=== PATIENT | male | born 1970 | race Two or more races ===

== ENCOUNTER 2021-10-31 09:57 | Outpatient (CLI) | payer OTHER | END 2021-10-31 09:59 | disposition home or self-care (01) | LOC: SONOGRAMA 09:57 | PROVIDERS: ATTEND Pathology Anatomic Pathology & Clinical Pathology | DX: E04.1 Nontoxic single thyroid nodule (principal) ==

== ENCOUNTER 2023-05-22 06:31 | Day surgery (SDC) | payer OTHER ==
[2023-05-20 12:47] LABS: HEMATOCRIT 44.9 % (39.0-48.0); HEMOGLOBIN 15.3 g/dL (13-16.00); MEAN CELL VOLUME 92.9 fL (80.0-100.00); MEAN CORPUSCULAR HEMOGLOBIN 31.7 pg (27.00-32.0); MEAN CORPUSCULAR HGB CONC 34.2 g/dl (32.0-36.0); PLATELET COUNT 342 K/uL (150-450); RED BLOOD COUNT 4.84 M/uL (4.00-6.00); RED CELL DISTRIBUTION WIDTH 13.3 % (11.5-14.5)
[2023-05-20 12:58] LABS: INR 1.2; PARTIAL THROMBOPLASTIN TIME 31.3 SECONDS (22.0-34.0); PROTHROMBIN TIME 12.4 SECONDS (9.0-11.5)
[2023-05-20 13:05] LABS: PH,URINE 6.5 (5.0-8.0); URINE APPEARANCE Clear; URINE BILIRRUBIN Negative (NEGATIVE); URINE BLOOD Negative; URINE COLOR Yellow; URINE GLUCOSE Negative (NEGATIVE); URINE LEUKOCYTE Negative; URINE NITRATE Negative; URINE PROTEIN Negative (NEGATIVE); URINE UROBILINOGEN 0.2 E.U./dl
[2023-05-20 13:09] LABS: URINE WBC 2.5 uL (0.0-23.2)
[2023-05-20 13:09] LABS: ALBUMIN 4.2 gm/dL (3.4-5.0); BILIRUBIN TOTAL 0.76 mg/dL (0.3-1.2); CALCIUM 10.3 mg/dL (8.5-10.1); CREATININE SERUM 1.06 mg/dL (0.70-1.30); GFR 72.53; GLOBULINA 3.7 G/DL (2.4-3.5); PHOSPHOROUS 3.5 mg/dL (2.5-4.9); POTASSIUM 4.6 mEq/L (3.5-5.1); TOTAL PROTEIN 7.9 gm/dL (6.4-8.2)
[2023-05-20 13:23] LABS: URINE EPITHELIAL CELLS 0.1 uL (0.0-38.8); URINE RBC 1.8 uL (0.0-20.8)
[2023-05-22] MEDS ORDERED: TRAM1TAB98 PO (12:27)
== END 2023-05-22 13:40 | disposition home or self-care (01) ==
LOC: CIR.AMB 06:31
PROVIDERS: ATTEND Surgery
DX: C20 Malignant neoplasm of rectum (principal); K62.5 Hemorrhage of anus and rectum; I10 Essential (primary) hypertension; Z20.822 Contact with and (suspected) exposure to COVID-19

== ENCOUNTER 2024-03-10 11:30 | Inpatient (IN) | payer OTHER ==
[~2024-03-10] VITALS: Ht 167.6 cm; Wt 77.1 kg
[~2024-03-10 11:30] MED LIST: NEURONTIN300 MG PO; TRAM1TAB98 PO
[2024-03-18] MEDS ORDERED: MORPHINE SULFATE 4 MG/ML CARTRIDGE IV PRN (12:45)
[2024-03-18] MEDS ORDERED: RINGERS SOLUTION,LACTATED 1,000 ML IV SCH (12:45)
[2024-03-18] MEDS ORDERED: DEXTROSE 50 % IN WATER 0.5 G/ML DISP.SYRIN IV PRN (12:45)
[2024-03-18] MEDS ORDERED: OxyCODONE HCL 5 MG TABLET (ROXICODONE) PO PRN (12:45)
[2024-03-18] MEDS ORDERED: ONDANSETRON HCL 2 MG/ML VIAL IV PRN (12:45)
[2024-03-18] MEDS ORDERED: LIDOCAINE HCL 1%/EPINEPHRINE 20ML VIAL IJ ONE (13:00)
[2024-03-18] MEDS ORDERED: HYOSCYAMINE SULFATE 0.125 MG TAB.SUBL SL SCH (13:00)
[2024-03-18] MEDS ORDERED: CHLORHEXIDINE GLUCONATE 120 ML BOTTLE TOP ONE (13:00)
[2024-03-18] MEDS ORDERED: BUPIVACAINE HCL 30 ML VIAL IJ ONE (13:00)
[2024-03-18] MEDS ORDERED: PIPERACILLIN/TAZOBACTAM SODIUM 3.375 GM VIAL IV ONE ×2 (13:00→14:30)
[2024-03-18] MEDS ORDERED: ENALAPRILAT DIHYDRATE 1.25 MG/ML VIAL IV PRN (13:15)
[2024-03-18] MEDS ORDERED: ACETAMINOPHEN 500 MG GEL..CAP PO SCH (14:00)
[2024-03-18 15:38] LABS: HEMATOCRIT 39.4 % (39.0-48.0); HEMOGLOBIN 13.5 g/dL (13-16.00); MEAN CELL VOLUME 93.1 fL (80.0-100.00); MEAN CORPUSCULAR HGB CONC 34.3 g/dl (32.0-36.0); PLATELET COUNT 224 K/uL (150-450); RED BLOOD COUNT 4.23 M/uL (4.00-6.00); RED CELL DISTRIBUTION WIDTH 13.9 % (11.5-14.5)
[2024-03-18 16:00] LABS: ALBUMIN 3.7 gm/dL (3.4-5.0); CALCIUM 8.9 mg/dL (8.5-10.1); CREATININE SERUM 1.23 mg/dL (0.70-1.30); GFR 60.87; PHOSPHOROUS 3.9 mg/dL (2.5-4.9); POTASSIUM 3.95 mEq/L (3.5-5.1)
[2024-03-18] MEDS ORDERED: GABAPENTIN 300 MG CAPSULE PO SCH (17:00)
[2024-03-18] MEDS ORDERED: POLYETHYLENE GLYCOL 3350 17 GM BLIST.PACK PO SCH (17:00)
[2024-03-18] MEDS ORDERED: MORPHINE SULFATE 4 MG/ML VIAL IV ONE (17:00)
[2024-03-18] MEDS ORDERED: PIPERACILLIN/TAZOBACTAM SODIUM 3.375 GM in 0.9 % SODIUM CHLORIDE 50 ML IV SCH (18:00)
[2024-03-18] MEDS ORDERED: PIPERACILLIN/TAZOBACTAM SODIUM 3.375 GM VIAL IV SCH (18:00)
[2024-03-18 19:05] VITALS: BP 133/42; O2SAT 98
[2024-03-18] MEDS ORDERED: FAMOTIDINE/PF 20 MG/2 ML VIAL IV PUSH SCH (21:00)
[2024-03-19 01:26] VITALS: BP 114/69; O2SAT 98
[2024-03-19 07:06] LABS: HEMATOCRIT 36.2 % (39.0-48.0); HEMOGLOBIN 12.5 g/dL (13-16.00); MEAN CELL VOLUME 92.5 fL (80.0-100.00); MEAN CORPUSCULAR HGB CONC 34.6 g/dl (32.0-36.0); PLATELET COUNT 198 K/uL (150-450); RED BLOOD COUNT 3.91 M/uL (4.00-6.00); RED CELL DISTRIBUTION WIDTH 14.1 % (11.5-14.5)
[2024-03-19 07:50] LABS: ALBUMIN 3.1 gm/dL (3.4-5.0); CALCIUM 8.9 mg/dL (8.5-10.1); CREATININE SERUM 1.01 mg/dL (0.70-1.30); GFR 76.41; MAGNESIUM 2.1 mg/dL (1.8-2.4); PHOSPHOROUS 3.9 mg/dL (2.5-4.9); POTASSIUM 3.92 mEq/L (3.5-5.1)
[2024-03-19 08:00] VITALS: BP 111/58; O2SAT 98
[2024-03-19] MEDS ORDERED: ACETAMINOPHEN500 M2 PO (13:02)
[2024-03-19] MEDS ORDERED: NEURONTIN300 MG PO (13:02)
[2024-03-19] MEDS ORDERED: ENOXAPARIN SODIUM 40 MG/0.4 ML SYRINGE SUBCUTANEO SCH (17:00)
[2024-03-20] MEDS ORDERED: ENOXAPARIN SODIUM 40 MG/0.4 ML SYRINGE SUBCUTANEO SCH (09:00)
== END 2024-03-19 14:08 | disposition home or self-care (01) | DRG 349 ==
LOC: SURH 03-18 07:00 → O/R 03-18 09:07 → SURH 03-18 11:30
PROVIDERS: ADMIT Surgery; ATTEND Surgery
PROC: 0DBB4ZZ Excision of Ileum, Percutaneous Endoscopic Approach (ICD-10-PCS; principal; 2024-03-18 07:00)
DX: Z43.2 Encounter for attention to ileostomy (principal); Z20.822 Contact with and (suspected) exposure to COVID-19

== ENCOUNTER 2024-03-26 20:03 | Emergency (ER) | payer OTHER ==
[~2024-03-26] VITALS: Ht 167.6 cm; Wt 77.1 kg
[~2024-03-26 20:03] MED LIST changes: +ACETAMINOPHEN500 M2 PO
[2024-03-26 20:59] LABS: HEMATOCRIT 36.9 % (39.0-48.0); HEMOGLOBIN 12.7 g/dL (13-16.00); MEAN CELL VOLUME 93.3 fL (80.0-100.00); MEAN CORPUSCULAR HEMOGLOBIN 32.2 pg (27.00-32.0); MEAN CORPUSCULAR HGB CONC 34.5 g/dl (32.0-36.0); PLATELET COUNT 307 K/uL (150-450); RED BLOOD COUNT 3.95 M/uL (4.00-6.00); RED CELL DISTRIBUTION WIDTH 13.4 % (11.5-14.5)
[2024-03-26 21:10] LABS: ERYTHROCYTE SEDIMENTATION RATE 26 mm/hr
[2024-03-26 21:35] LABS: PH,URINE 6.5 (5.0-8.0); URINE APPEARANCE Clear; URINE BILIRRUBIN Negative (NEGATIVE); URINE BLOOD Negative; URINE COLOR Yellow; URINE GLUCOSE Negative (NEGATIVE); URINE KETONE Negative (NEGATIVE); URINE LEUKOCYTE Negative; URINE NITRATE Negative; URINE PROTEIN Negative (NEGATIVE); URINE UROBILINOGEN 0.2 E.U./dl
[2024-03-26 21:42] LABS: INR 1.21; PARTIAL THROMBOPLASTIN TIME 29.2 SECONDS (22.0-34.0)
[2024-03-26 21:54] LABS: BILIRUBIN TOTAL 0.29 mg/dL (0.3-1.2); CALCIUM 9.5 mg/dL (8.5-10.1); CREATININE SERUM 1.03 mg/dL (0.70-1.30); GFR 74.7; GLOBULINA 3.5 G/DL (2.4-3.5); POTASSIUM 4.08 mEq/L (3.5-5.1); TOTAL PROTEIN 7.5 gm/dL (6.4-8.2)
[2024-03-26 22:07] LABS: URINE BACTERIA 2.5 uL (0.0-1933); URINE RBC 1.3 uL (0.0-20.8); URINE WBC 0.8 uL (0.0-23.2)
[2024-03-26 22:08] LABS: C-REACTIVE PROTEIN 0.44 MG/DL (0.00-0.29)
== END 2024-03-27 07:54 | disposition home or self-care (01) ==
LOC: ER 20:04
PROVIDERS: General Practice
DX: G89.18 Other acute postprocedural pain (principal); N28.1 Cyst of kidney, acquired; Z98.890 Other specified postprocedural states

== ENCOUNTER 2024-11-25 05:53 | Day surgery (SDC) | payer OTHER ==
[2024-11-15 12:42] VITALS: BP 150/81
[2024-11-15 12:47] LABS: ALBUMIN 3.8 gm/dL (3.4-5.0); BILIRUBIN TOTAL 0.68 mg/dL (0.3-1.2); CALCIUM 9.5 mg/dL (8.5-10.1); CREATININE SERUM 1.06 mg/dL (0.70-1.30); GFR 72.27; GLOBULINA 3.3 G/DL (2.4-3.5); POTASSIUM 4.32 mEq/L (3.5-5.1); TOTAL PROTEIN 7.1 gm/dL (6.4-8.2)
[~2024-11-25] VITALS: Ht 167.6 cm; Wt 79.4 kg
[2024-11-25] MEDS ORDERED: CEFAZOLIN SODIUM 1,000 MG VIAL ONE (07:02)
[2024-11-25] MEDS ORDERED: TRAM1TAB98 PO (10:13)
== END 2024-11-25 11:15 | disposition home or self-care (01) ==
LOC: CIR.AMB 05:53
PROVIDERS: ATTEND Surgery
DX: T82.594A Other mechanical complication of infusion catheter, initial encounter (principal); C20 Malignant neoplasm of rectum; R59.0 Localized enlarged lymph nodes

== ENCOUNTER 2025-03-19 04:55 | Inpatient (IN) | payer OTHER ==
[~2025-03-19] VITALS: Ht 167.6 cm; Wt 77.1 kg
[2025-03-19] MEDS ORDERED: KETOROLAC TROMETHAMINE 30 MG VIAL IU STA (05:10)
[2025-03-19] MEDS ORDERED: ONDANSETRON HCL 2 MG/ML VIAL IV STA (05:11)
--- NOTE | 2025-03-19 05:17 | NUR ---
SE RECIBE PACIENTE ALERTA Y ORIENTADO X3 EL CUAL REFIERE VENIR A CAUSA DE QUE CAST ESTADO PRESENTANDO SINTOMAS DE DOLOR ABDOMINAL. AL MOMENTO EL MISMO REFIERE SER PACIENTE DE DR DRHUV OLIVA.
[2025-03-19] MEDS ORDERED: ONDANSETRON HCL 2 MG/ML VIAL ONE (05:23)
[2025-03-19] MEDS ORDERED: KETOROLAC TROMETHAMINE 30 MG VIAL ONE (05:23)
--- NOTE | 2025-03-19 05:46 | NUR ---
PTE LLEGA EN AMBULANCIA DE TRANSFER DEL [facility] D[facility] DIALLO QUIEN OPERO A EL PTE . LA LO EVALA Y ORDENA TRATAMIENTO LA CUAL S EJECUTA. SE MANITNENE BAJO OBSERVACION.
[2025-03-19 08:03] LABS: URINE APPEARANCE Clear; URINE BILIRRUBIN Negative (NEGATIVE); URINE BLOOD Trace; URINE COLOR Yellow; URINE GLUCOSE Negative (NEGATIVE); URINE LEUKOCYTE Negative; URINE NITRATE Negative; URINE PROTEIN 30 (NEGATIVE); URINE UROBILINOGEN 0.2 E.U./dl
[2025-03-19 08:06] LABS: URINE BACTERIA 15.5 uL (0.0-1933); URINE CAST 2.05 uL (0.0-1.40); URINE EPITHELIAL CELLS 13.0 uL (0.0-38.8); URINE RBC 6.5 uL (0.0-20.8); URINE WBC 5.2 uL (0.0-23.2)
--- NOTE | 2025-03-19 08:12 | NUR ---
SE RECIBE A PTE EN CAMA BAJA Y BARANDAS ELEVADAS POR WELLS SEGURIDAD CON H/L EN ROMA MCCONNELL. EN ESPERA DE RESULTADOS DE TOXICOLOGIA Y U/A.
--- NOTE | 2025-03-19 08:14 | NUR ---
SE RECIBE A PTE EN CAMA BAJA Y BARANDAS ELEVADAS POR WELLS SEGURIDAD CON H/L EN ROMA CMCONNELL. EN ESPERA DE LECTURA DE CT.
[2025-03-19] MEDS ORDERED: 0.9 % SODIUM CHLORIDE 1,000 ML IV SCH ×2 (08:15→12:45)
[2025-03-19] MEDS ORDERED: FAMOTIDINE/PF 20 MG in 0.9 % SODIUM CHLORIDE 8 ML IV PUSH ONE (08:30)
[2025-03-19 08:38] LABS: ALT/SGPT 29.0 U/L (12-78); AST/SGOT 28.0 U/L (15-37); BILIRUBIN TOTAL 1.15 mg/dL (0.3-1.2); BUN CREA RATIO 19.0 (7.0-25.0); CREATININE SERUM 1.18 mg/dL (0.70-1.30); GFR 63.63; GLOBULINA 3.7 G/DL (2.4-3.5); GLUCOSE FASTING 143.0 mg/dL (65-100); OSMOLALITY SERUM 281.0 MOSM/KG (275-295)
[2025-03-19] MEDS ORDERED: FAMOTIDINE/PF 20 MG/2 ML VIAL ONE ×2 (09:02→09:05)
[2025-03-19 09:10] LABS: URINE KETONE 80 (NEGATIVE)
[2025-03-19 09:11] LABS: TYPE CELLS SQUAMOUS; URINE CRYSTALS FEW /HPF; URINE MUCUS SCANT
[2025-03-19 09:18] LABS: BASO % 0.3 % (0.1-1.2); EOS # 0.00 (0.04-0.54); EOS % 0.0 % (0.7-7.0); LYMPH # 0.73 (1.18-3.74); LYMPH % 4.2 % (19.3-53.1); MEAN PLATELET VOLUME 9.50 fl (9.4-12.4); MONO # 0.90 (0.24-0.82); MONO % 5.2 % (4.7-12.5); NEUT # 15.68 (1.56-6.13); NEUT % 89.9 % (34.0-71.1); RED CELL DISTRIBUTION WIDTH 12.5 % (11.6-14.4)
[2025-03-19] MEDS ORDERED: PIPERACILLIN/TAZOBACTAM SODIUM 3.375 GM VIAL IV ONE (10:41)
[2025-03-19] MEDS ORDERED: PIPERACILLIN/TAZOBACTAM SODIUM 3.375 GM in DEXTROSE 5 % IN WATER 100 ML IV ONE (10:45)
[2025-03-19] MEDS ORDERED: LIDOCAINE HCL VISCOUS 20MG/ML BLIST 15ML MM ONE (10:52)
[2025-03-19] MEDS ORDERED: METRONIDAZOLE/SODIUM CHLORIDE 500 MG/100 ML PIGGYBACK IV SCH (12:35)
[2025-03-19] MEDS ORDERED: CIPROFLOXACIN IN 5 % DEXTROSE 400 MG/200 ML PIGGYBAG IV SCH (12:35)
[2025-03-19] MEDS ORDERED: FAMOTIDINE/PF 20 MG/2 ML VIAL IV SCH (12:35)
[2025-03-19] MEDS ORDERED: MORPHINE SULFATE 4 MG/ML CARTRIDGE IV PRN (12:45)
[2025-03-19 16:13] VITALS: BP 125/74; O2SAT 96
[2025-03-19 16:26] VITALS: BP 125/74
[2025-03-20 01:22] VITALS: BP 121/75; O2SAT 99
[2025-03-20 06:11] LABS: BASO % 0.3 % (0.1-1.2); EOS # 0.12 (0.04-0.54); EOS % 1.7 % (0.7-7.0); LYMPH # 1.71 (1.18-3.74); LYMPH % 24.0 % (19.3-53.1); MEAN PLATELET VOLUME 9.30 fl (9.4-12.4); MONO # 0.67 (0.24-0.82); MONO % 9.4 % (4.7-12.5); NEUT # 4.59 (1.56-6.13); NEUT % 64.5 % (34.0-71.1); RED CELL DISTRIBUTION WIDTH 12.4 % (11.6-14.4)
[2025-03-20 06:49] LABS: BUN CREA RATIO 13.0 (7.0-25.0); CREATININE SERUM 1.15 mg/dL (0.70-1.30); GFR 65.54; GLUCOSE FASTING 102.0 mg/dL (65-100); OSMOLALITY SERUM 284.0 MOSM/KG (275-295)
[2025-03-20 08:00] VITALS: BP 139/78; O2SAT 98
[2025-03-20] MEDS ORDERED: ENOXAPARIN SODIUM 40 MG/0.4 ML SYRINGE SUBCUTANEO SCH (09:00)
[2025-03-20 16:55] VITALS: BP 147/68; O2SAT 98
[2025-03-21 00:44] VITALS: BP 154/72; O2SAT 98
[2025-03-21 09:21] VITALS: BP 150/75; O2SAT 99
[2025-03-21] MEDS ORDERED: DIATRIZOATE MEGLUMINE, SODIUM 30 ML BOTTLE PO NR (10:30)
[2025-03-21] MEDS ORDERED: ENALAPRILAT DIHYDRATE 1.25 MG/ML VIAL IV PRN (13:00)
[2025-03-21 16:00] VITALS: BP 145/74; O2SAT 98
[2025-03-22 00:40] VITALS: BP 127/73; O2SAT 100
[2025-03-22 08:00] VITALS: BP 138/66; O2SAT 98
[2025-03-22] MEDS ORDERED: INTESTINEX680 M1 PO (08:42)
[2025-03-22] MEDS ORDERED: AMOX1TAB5 PO (08:43)
[2025-03-22 10:59] LABS: BUN CREA RATIO 7.0 (7.0-25.0); CREATININE SERUM 1.04 mg/dL (0.70-1.30); GFR 73.61; GLUCOSE FASTING 95.0 mg/dL (65-100); OSMOLALITY SERUM 283.0 MOSM/KG (275-295)
== END 2025-03-22 13:28 | disposition home or self-care (01) | DRG 390 ==
LOC: ER 04:55 → SURH 12:36
PROVIDERS: Physician Assistant Medical; ADMIT Surgery; ATTEND Surgery
PROC: 0D9670Z Drainage of Stomach with Drainage Device, Via Natural or Artificial Opening (ICD-10-PCS; principal; 2025-03-19)
PROC: BW21ZZZ Computerized Tomography (CT Scan) of Abdomen and Pelvis (ICD-10-PCS; 2025-03-19)
PROC: BW21YZZ Computerized Tomography (CT Scan) of Abdomen and Pelvis using Other Contrast (ICD-10-PCS; 2025-03-21)
DX: K56.609 Unspecified intestinal obstruction, unspecified as to partial versus complete obstruction (principal); E86.0 Dehydration; K59.00 Constipation, unspecified; I10 Essential (primary) hypertension